=== PATIENT | female | born 1995 | race Two or more races ===

== ENCOUNTER 2019-04-16 09:19 | Emergency (ER) | payer SELFPAY ==
[~2019-04-16] VITALS: Ht 157.5 cm; Wt 108.9 kg
[2019-04-16 09:45] VITALS: BP 140/93
--- NOTE | 2019-04-16 09:49 | PHYS DOC ---
Adult General Chief Complaint Chief Complaint: ABSCESS HPI HPI Patient is a 23 year old female who presents to the emergency department with complaints about her breast today. Patient states that she has had bloody discharge from her left nipple for the last 2-3 days, and erythema, warmth, and tenderness lateral to her right nipple located at 8:00 for the last week. Patient states she was seeing a breast specialist at [facility] because of problems with abscesses in her breasts until she lost her insurance recently. Patient states the last time she took antibiotics for her breast was over a month ago. She denies any fever, itching, or any known injury. At rest she denies any pain, if she moves or touches the breasts that her pain shoots up to 8 out of 10. Patient denies any fever, body aches, fatigue, chest pain, palpitations, shortness of breath, nausea, vomiting, diarrhea, or abdominal pain. All other ROS is neg unless otherwise noted in HPI. Review of Systems Review of Systems See Above Physical Exam Physical Exam See Above Constitutional: Well developed, well nourished, no acute distress, non-toxic appearance, obese. [] HENT: Normocephalic, atraumatic, bilateral external ears normal, nose normal. [] Eyes: PERRLA, EOMI, conjunctiva normal, no discharge. [] Neck: Normal range of motion, no stridor. [] Cardiovascular:Heart rate regular rhythm Lungs & Thorax: Respirations even and unlabored, no retractions, no respiratory distress Breasts: scant amount of pink discharge on bandage removed from over the left nipple; L breast tenderness at the nipple no erythema or warmth noted Skin: Warm, dry; tender area of erythema and warmth noted lateral to the right breast nipple at 8:00 measuring approximately 5 cm in diameter, no visible pustule, non- fluctuant, consistent with cellulitis Extremities: No cyanosis, ROM intact Neurologic: Alert and oriented X 3, no focal deficits noted. [] Psychologic: Affect normal, judgement normal, mood normal. [] EKG EKG [] Radiology/Procedures Radiology/Procedures [] Course & Med Decision Making Course & Med Decision Making Pertinent Labs and Imaging studies reviewed. (See chart for details) Patient is a 23-year-old female who presented to the emergency department with complaints about her bilateral breasts. Patient states that this has been an ongoing problem for several months. Discussed this case with Dr. Echevarria, the decision to prescribe Keflex 500 mg 4 times a day 10 days was made. Advised the patient to follow-up with a primary care provider using the community resource sheet that was provided in the emergency room. Pt verbalized an understanding of home care, medications, follow-up, and return to ED instructions and was in agreement with the plan of care. [] Dragon Disclaimer Dragon Disclaimer This electronic medical record was generated, in whole or in part, using a voice recognition dictation system. Departure Departure Impression: Primary Impression: Cellulitis of female breast Additional Impression: Nipple discharge in female Disposition: 01 HOME, SELF-CARE Condition: STABLE Referrals: NO PCP (PCP) Patient Instructions: Cellulitis, [id number] Additional Instructions: Apply warm moist heat to the affected areas every 2 hours while awake and as needed for comfort. Fill the prescription and take as directed. Recommend that you take 600 mg of ibuprofen every 6 hours with food for pain relief. Use the community resource sheet provided to follow-up with a primary care doctor for further evaluation and treatment of your problem. Return to the ER if symptoms worsen or you develop a fever. Scripts Cephalexin (CEPHALEXIN) 500 Mg Capsule 1 CAP PO QID for 10 Days, #40 CAP 0 Refills Prov: BATSHEVA NG APRN 04/16/19 Problem Qualifiers BATSHEVA NG APRN Apr 16, 2019 09:49
[2019-04-16] MEDS ORDERED: CEPH500C PO (10:06)
== END 2019-04-16 10:27 | disposition home or self-care (01) ==
LOC: ER 09:19
DX: N61.0 Mastitis without abscess (principal); N64.52 Nipple discharge
CPT/HCPCS: 99283